=== PATIENT | male | born 1935 | race Caucasian/White ===

== ENCOUNTER 2016-07-13 11:50 | Inpatient (IN) | payer MEDICARE ==
[~2016-07-13] VITALS: Ht 185.4 cm; Wt 115.0 kg
[~2016-07-13 11:50] MED LIST: ASPI81TA82 PO; FURO1TAB93 PO; LEVO25TA36 PO; LISI-363 PO; SIMV80TA PO; WARF5TAB PO; [UNRECOGNIZED DRUG - CODE] XX
[2016-07-13 11:52] VITALS: BP 142/66; PULSE 58; RESP 20; TEMP 97.4; O2SAT 96
--- NOTE | 2016-07-13 12:05 | PD ---
Physical Exam Date Seen by Provider: Jul 13, 2016 Time Seen by Provider: 12:02 Narrative 81 year old male presents to the emergency department for possibility of arterial occlusion to his left foot. He was seen by his primary care physician this morning and was referred to the ED. He states he woke up at 11 pm last night with no feeling to his left lower leg. He states his foot is cool to the touch. Primary care physician is Dr. Tapia with [facility]. Vital signs reviewed. Patient awaiting bed placement. Data Data Last Documented VS Vital Signs Date Time Temp Pulse Resp B/P Pulse Ox O2 Delivery O2 Flow Rate FiO2 07/13/16 11:52 97.4 58 20 142/66 96 Room Air [facility] Supervised Visit with PRIYA: Asya Macias Jul 13, 2016 12:05
[2016-07-13] MEDS ORDERED: SODIUM CHLORIDE 0.9% FLUSH 10 ML FLUSH IV FLUSH PRN ×2 (14:15→19:30)
--- NOTE | 2016-07-13 14:23 | PD ---
HPI Chief Complaint: Pain: Acute or Chronic Time Seen by Provider: 14:20 Travel History International Travel<30 days: No Contact w/Intl Traveler<30days: No Traveled to known affect area: No History of Present Illness HPI Patient comes in for evaluation from his primary care doctor's office for possible arterial occlusion left lower extremity. Patient states that he woke last night at 11 PM with no sensation in his left leg from his knee down. Reports his tried poking it with a needle and he could not feel it. Patient's approximate 30 minutes he started having pins and needle sensation in his leg and today is having pain with walking in his posterior calf. Patient reports that he suppose to be on Coumadin for A. fib, but forgot to take 4 days worth. Patient states his primary care doctor's concern of possible arterial occlusion. Patient denies any pain currently other than with walking. PFSH Past Medical History Cardiovascular Problems: Yes (TRIPLE BYPASS 1998) Thyroid Disease: Yes Past Surgical History Thoracic Surgery: Yes Social History Alcohol Use: Yes Tobacco Use: Yes (CHEW TOBACCO) Allergies-Medications (Allergen,Severity, Reaction): Coded Allergies: No Known Allergies (Verified , 07/13/16) Reported Meds & Prescriptions Reported Meds & Active Scripts Active Reported Folic Acid 5 Mg Cap 5 Mg PO DAILY Aspirin 81 Mg Chew 81 Mg CHEW DAILY Metformin (Metformin HCl) 1,000 Mg Tab 1,000 Mg PO BIDPC With meals Levothyroxine (Levothyroxine Sodium) 25 Mcg Tab 25 Mcg PO DAILY Lopressor (Metoprolol Tartrate) 50 Mg Tab 25 Mg PO BID Simvastatin 40 Mg Tab 40 Mg PO HS Warfarin 4 Mg Tab 4 Mg PO DAILY Review of Systems Except as stated in HPI: all other systems reviewed are Neg Physical Exam Narrative GENERAL: Well-developed, overly nourished, in no acute distress, and non-ill appearing. SKIN: Focused skin assessment warm and dry. HEAD: Atraumatic. Normocephalic. EYES: Pupils equal and round. EOMI. No scleral icterus. No injection or drainage. ENT: No nasal bleeding or discharge. Mucous membranes pink and moist. NECK: Trachea midline. Supple. No nuclear rigidity. CARDIOVASCULAR: Dorsal pulses 1+, intact, and equal bilaterally. Decreased capillary refill bilaterally. RESPIRATORY: No accessory muscle use. No respiratory distress. MUSCULOSKELETAL: No obvious deformities. No clubbing. No cyanosis. No edema. Full range of motion. Negative Homans sign bilaterally. NEUROLOGICAL: Awake and alert. No obvious cranial nerve deficits. Motor grossly within normal limits. Normal speech. PSYCHIATRIC: Appropriate mood and affect; insight and judgment normal. Data Data Last Documented VS Vital Signs Date Time Temp Pulse Resp B/P Pulse Ox O2 Delivery O2 Flow Rate FiO2 07/13/16 18:37 56 16 167/77 96 Room Air 07/13/16 11:52 97.4 Orders Basic Metabolic Panel (Bmp) (07/13/16 14:12) Complete Blood Count With Diff (07/13/16 14:12) Prothrombin Time / Inr (Pt) (07/13/16 14:12) Act Partial Throm Time (Ptt) (07/13/16 14:12) Iv Access Insert/Monitor (07/13/16 14:12) Ecg Monitoring (07/13/16 14:12) Oximetry (07/13/16 14:12) Sodium Chloride 0.9% Flush (Ns Flush) (07/13/16 14:15) Cta Runoff W Iv Contrast W 3d (07/13/16 ) Us Leg Venous Doppler (07/13/16 ) Iohexol 350 Inj (Omnipaque 350 Inj) (07/13/16 16:51) Heparin Infusion JOÃO.Q1H (07/13/16 19:13) Heparin Inj (Heparin Inj) (07/13/16 19:15) Heparin Inj (Heparin Inj) (07/14/16 01:15) Heparin Inj (Heparin Inj) (07/14/16 01:15) Heparin-D5w Inj (Heparin-D5w Inj) (07/13/16 19:15) Act Partial Throm Time (Ptt) (07/13/16 19:13) Prothrombin Time / Inr (Pt) (07/13/16 19:13) Cbc No Diff, Includes Plts (07/13/16 19:13) Cbc No Diff, Includes Plts (07/16/16 06:00) Act Partial Throm Time (Ptt) (07/14/16 02:13) Occult Blood (Hemoccult) Stool (07/13/16 19:13) Consult Vascular Surgery (07/13/16 ) Admit To Inpatient (07/13/16 ) Code Status (07/13/16 19:25) Vital Signs (Adult) Q4H (07/13/16 19:25) Activity Bed Rest (07/13/16:25) Wood Technologist / Telemetry .CONTINUOUS (07/13/16:) Diet Npo (07/14/16 Breakfast) Sodium Chloride 0.9% Flush (Ns Flush) (07/13/16 19:30) Sodium Chloride 0.9% Flush (Ns Flush) (07/13/16 21:00) Acetaminophen (Tylenol) (07/13/16 19:30) Ondansetron Inj (Zofran Inj) (07/13/16 19:30) Magnesium Hydroxide Liq (Milk Of Magnesi (07/13/16 19:30) Temazepam (Restoril) (07/13/16:) Basic Metabolic Panel (Bmp) (07/14/16 06:00) Complete Blood Count With Diff (07/14/16 06:00) Electrocardiogram (07/13/16:25) Resp Oxygen Kvng C Titrat 1-4 L (07/13/16 ) Pt Request For Service (07/13/16:25) Naloxone Inj (Narcan Inj) (07/13/16 19:30) Inpatient Certification (07/13/16 ) Heparin Infusion JOÃO.Q1H (07/13/16 19:28) Heparin-D5w Inj (Heparin-D5w Inj) (07/13/16 19:30) Act Partial Throm Time (Ptt) (07/13/16 19:28) Act Partial Throm Time (Ptt) (07/14/16 02:28) Occult Blood (Hemoccult) Stool (07/13/16 19:28) Levothyroxine (Synthroid) (07/14/16 09:00) Metoprolol Tartrate (Lopressor) (07/13/16 21:00) (Nf) Simvastatin (07/13/16 21:00) Admit Order (Ed Use Only) (07/13/16 19:30) Labs Laboratory Tests Test 07/13/16 14:20 White Blood Count 6.1 TH/MM3 Red Blood Count 3.46 MIL/MM3 Hemoglobin 11.4 GM/DL Hematocrit 33.9 % Mean Corpuscular Volume 98.0 FL Mean Corpuscular Hemoglobin 32.9 PG Mean Corpuscular Hemoglobin 33.5 % Concent Red Cell Distribution Width 14.7 % Platelet Count 104 TH/MM3 Mean Platelet Volume 10.6 FL Neutrophils (%) (Auto) 56.5 % Lymphocytes (%) (Auto) 28.1 % Monocytes (%) (Auto) 13.1 % Eosinophils (%) (Auto) 1.5 % Basophils (%) (Auto) 0.8 % Neutrophils # (Auto) 3.5 TH/MM3 Lymphocytes # (Auto) 1.7 TH/MM3 Monocytes # (Auto) 0.8 TH/MM3 Eosinophils # (Auto) 0.1 TH/MM3 Basophils # (Auto) 0.0 TH/MM3 CBC Comment DIFF FINAL Differential Comment Prothrombin Time 11.6 SEC Prothromb Time International 1.0 RATIO Ratio Activated Partial 26.8 SEC Thromboplast Time Sodium Level 141 MEQ/L Potassium Level 4.3 MEQ/L Chloride Level 105 MEQ/L Carbon Dioxide Level 30.2 MEQ/L Anion Gap 6 MEQ/L Blood Urea Nitrogen 23 MG/DL Creatinine 0.96 MG/DL Estimat Glomerular Filtration 75 ML/MIN Rate Random Glucose 99 MG/DL Calcium Level 9.1 MG/DL [facility] Medical Decision Making Medical Screen Exam Complete: Yes Emergency Medical Condition: Yes Differential Diagnosis DVT, arterial occlusion, subtherapeutic INR, electrolyte abnormality, other Narrative Course Patient seen and examined. Laboratory blood studies were obtained and reviewed. Discussed patient with Dr. Perez, who is in agreement with plan of care and disposition. Discussed all findings and plan of care with patient and family. Patient is agreeable for admission. All questions were answered. Physician Communication Physician Communication [address] Nolan, who recommends patient admitted to medicine, started on heparin drip with IV bolus, and keep patient nothing by mouth. He will consult. [address] Prado, who is agreeable to admit the patient. Diagnosis Primary Impression: Left popliteal artery occlusion Additional Impression: Subtherapeutic international normalized ratio (INR) Admitting Information Admitting Physician Requests: Admit Condition: Stable Zenon Farrell Jul 13, 2016 14:23
[2016-07-13 14:29] VITALS: BP 143/96; PULSE 52; RESP 16; O2SAT 98
[2016-07-13 14:32] LABS: AUTOMATED NEUTROPHIL # 3.5 TH/MM3 (1.8-7.7); BASOPHIL % 0.8 % (0.0-2.0); EOSINOPHIL # 0.1 TH/MM3 (0-0.4); EOSINOPHIL % 1.5 % (0.0-4.0); HEMATOCRIT 33.9 % (39.0-51.0); HEMO FLAGS DIFF FINAL; LYMPH % 28.1 % (9.0-44.0); LYMPHOCYTE # 1.7 TH/MM3 (1.0-4.8); MEAN CORPUSCULAR HEMOGLOBIN 32.9 PG (27.0-34.0); MEAN CORPUSCULAR HGB CONC 33.5 % (32.0-36.0); MONO % 13.1 % (0.0-8.0); NEUT % 56.5 % (16.0-70.0); PLATELET COUNT 104 TH/MM3 (150-450); RED BLOOD COUNT 3.46 MIL/MM3 (4.50-5.90); RED CELL DISTRIBUTION WIDTH 14.7 % (11.6-17.2); WHITE BLOOD COUNT 6.1 TH/MM3 (4.0-11.0)
[2016-07-13] MEDS ORDERED: SIMV40TA PO (14:40)
[2016-07-13] MEDS ORDERED: LEVO25TA4 PO (14:40)
[2016-07-13] MEDS ORDERED: METO-309 PO (14:40)
[2016-07-13] MEDS ORDERED: FOLI5CAP PO (14:40)
[2016-07-13] MEDS ORDERED: ASPI81CH CHEW (14:40)
[2016-07-13] MEDS ORDERED: WARF-20 PO (14:40)
[2016-07-13] MEDS ORDERED: METF1000 PO (14:40)
[2016-07-13 14:45] LABS: APTT (PATIENT) 26.8 SEC (24.3-30.1); BICARBONATE 30.2 MEQ/L (21.0-32.0); POTASSIUM 4.3 MEQ/L (3.5-5.1); PROTHROMBIN TIME - PATIENT 11.6 SEC (9.8-11.6)
--- NOTE | 2016-07-13 14:53 | RADRPT ---
EXAM DATE/TIME: 07/13/2016 14:30 [facility] COMPARISON: No previous studies available for comparison. INDICATIONS : Left leg swelling. MEDICAL HISTORY : Hypertension. Hypothyroidism. Thyroid disease. Cardiac disorders. SURGICAL HISTORY : Triple bypass. ENCOUNTER: Initial ACUITY: 2 day PAIN SCORE: 3/10 LOCATION: Left leg. TECHNIQUE: Venous ultrasound of the leg was performed from the inguinal ligament to the proximal calf. Real-monty e, color Doppler and spectral tracing, compression and augmentation techniques were used. FINDINGS: There is normal compressibility of the deep venous system from the inguinal region to the proximal ca lf. No echogenic clot is seen in the lumen of the common femoral, femoral, popliteal, and posterior tibial veins. There is a normal response of the venous system to proximal and distal augmentation an d respiration. CONCLUSION: No DVT is identified within the left lower extremity. Vivek Morin MD on July 13, 2016 at 14:52 Board Certified Radiologist. This report was verified electronically.
[2016-07-13] MEDS ORDERED: IOHEXOL 350 MG/ML 10 ML VIAL (for RAD DIAG) IV ONE (16:51)
[2016-07-13 18:37] VITALS: BP 167/77; PULSE 56; RESP 16; O2SAT 96
--- NOTE | 2016-07-13 18:41 | RADRPT ---
EXAM DATE/TIME: 07/13/2016 16:24 [facility] COMPARISON: No previous studies available for comparison. INDICATIONS : Left leg weakness and lack of sensation from knee down. IV CONTRAST: 100 cc Omnipaque 350 (iohexol) IV RADIATION DOSE: 4.36 CTDIvol (mGy) MEDICAL HISTORY : Hypertension. Hernia, hiatal. Diabetes mellitus type 2. SURGICAL HISTORY : CABG ENCOUNTER: Initial ACUITY: 2 days PAIN SCALE: 0/10 LOCATION: Left leg TECHNIQUE: Volumetric scanning was performed using a multi-row detector CT scanner. The data was post processed with a variety of visualization algorithms including full volume maximum intensity projection, multi -planar sliding thin slab reformation, curved planar reformation, and surface rendering techniques. Using automated exposure control and adjustment of the mA and/or kV according to patient size, radiat ion dose was kept as low as reasonably achievable to obtain optimal diagnostic quality images. FINDINGS: The abdominal aorta is notable for moderate atheromatous irregularity and patchy intimal calcificatio n. No significant aortic stenosis. No aneurysm. The iliacs are widely patent bilaterally. The hypogas trics are patent bilaterally. Looking at the aortic visceral vessels, the celiac and SMA are patent a nd satisfactory in appearance. There is at least mild-moderate ostial renal artery stenosis bilateral ly. The STEVE is patent. In the left leg, the profunda is patent. The superficial femoral artery is widely patent throughout. The popliteal artery occludes just below the knee joint. The trifurcation vessels appear to reconstit [place] proximally. The posterior tibial is the dominant runoff vessel and is intact to the foot. Small c aliber anterior tibial and peritoneal vessels are also present, however these appear severely disease d and potentially discontinuous. In the contralateral right leg, the superficial femoral artery is patent with mild focal disease in t he adductor hiatus. The popliteal artery is intact. 3 vessel right calf runoff is noted. Elsewhere on the exam, note is made of interstitial thickening and mild pleural thickening in the joanne g bases. CONCLUSION: Left popliteal occlusion. Trifurcation vessels reconstitute proximally. Vivek Tena MD on July 13, 2016 at 18:28 Board Certified Radiologist. This report was verified electronically.
[2016-07-13] MEDS ORDERED: HEPARIN-D5W INJ 250 ML IV SCH ×2 (19:15→21:00)
[2016-07-13] MEDS ORDERED: HEPARIN SODIUM - IV 10,000 UNITS/10 ML VIAL IV ONE (19:15)
[2016-07-13] MEDS ORDERED: ACETAMINOPHEN 325 MG TAB PO PRN (19:30)
[2016-07-13] MEDS ORDERED: MAGNESIUM HYDROXIDE SUSP 30 ML CUP PO PRN (19:30)
[2016-07-13] MEDS ORDERED: TEMAZEPAM 15 MG CAP PO PRN (19:30)
[2016-07-13] MEDS ORDERED: ONDANSETRON HCL 4 MG/2 ML VIAL IVP PRN (19:30)
[2016-07-13] MEDS ORDERED: NALOXONE HCL 0.4 MG/ML AMP IV PRN (19:30)
[2016-07-13 19:53] LABS: HEMATOCRIT 32.3 % (39.0-51.0); MEAN CELL VOLUME 97.1 FL (80.0-100.0); MEAN CORPUSCULAR HEMOGLOBIN 33.2 PG (27.0-34.0); MEAN CORPUSCULAR HGB CONC 34.2 % (32.0-36.0); PLATELET COUNT 95 TH/MM3 (150-450); RED BLOOD COUNT 3.32 MIL/MM3 (4.50-5.90); RED CELL DISTRIBUTION WIDTH 14.8 % (11.6-17.2); WHITE BLOOD COUNT 4.9 TH/MM3 (4.0-11.0)
[2016-07-13 19:59] LABS: REVIEW FLAG ND
[2016-07-13 20:05] LABS: APTT (PATIENT) 27.1 SEC (24.3-30.1); INTERNATIONAL NORMALIZED RATIO 1.1 RATIO; PROTHROMBIN TIME - PATIENT 11.9 SEC (9.8-11.6)
[2016-07-13 20:28] VITALS: BP 172/85; PULSE 53; RESP 16; O2SAT 96
--- NOTE | 2016-07-13 20:34 | PD.CAR.PN ---
CVT Progress Note Subjective/Hospital Course: 81-year-old gentleman with the thromboembolism to the left popliteal artery and probably previous thromboembolic events as this looks like on the CTA. Patient has underlying arthrosclerotic changes and on that superimposed thromboembolic event I discussed this with the interventional radiologist Dr. Tena in the face off diminished but certainly present pulses in the left foot and completely preserved motoric and sensory activity I believe it's reasonable to place patient on IV heparin followed by possible tPA lysis or open embolectomy tomorrow. Advantage of TPA lysis is obviously no need for surgery and in addition patient can have a distal catch net to prevent embolization into posterior tibial artery With open embolectomy I have no protection and there is always a chance second knock off some of the clot into the distal circulation which of course carries its own problems. At this point will place patient on heparin see how they does tomorrow and consider our options how to best serve this gentleman Full consult dictated Thanks Rajesh Objective: Vital Signs Date Time Temp Pulse Resp B/P Pulse Ox O2 Delivery O2 Flow Rate FiO2 07/13/16 18:37 56 16 167/77 96 Room Air 07/13/16 14:29 52 16 143/96 98 07/13/16 11:52 97.4 58 20 142/66 96 Room Air Labs: Laboratory Tests Test 07/13/16 07/13/16 14:20 19:40 White Blood Count 6.1 TH/MM3 4.9 TH/MM3 (4.0-11.0) (4.0-11.0) Red Blood Count 3.46 MIL/MM3 3.32 MIL/MM3 (4.50-5.90) (4.50-5.90) Hemoglobin 11.4 GM/DL 11.0 GM/DL (13.0-17.0) (13.0-17.0) Hematocrit 33.9 % 32.3 % (39.0-51.0) (39.0-51.0) Mean Corpuscular Volume 98.0 FL 97.1 FL (80.0-100.0) (80.0-100.0) Mean Corpuscular Hemoglobin 32.9 PG 33.2 PG (27.0-34.0) (27.0-34.0) Mean Corpuscular Hemoglobin 33.5 % 34.2 % Concent (32.0-36.0) (32.0-36.0) Red Cell Distribution Width 14.7 % 14.8 % (11.6-17.2) (11.6-17.2) Platelet Count 104 TH/MM3 95 TH/MM3 (150-450) (150-450) Mean Platelet Volume 10.6 FL 10.4 FL (7.0-11.0) (7.0-11.0) Neutrophils (%) (Auto) 56.5 % (16.0-70.0) Lymphocytes (%) (Auto) 28.1 % (9.0-44.0) Monocytes (%) (Auto) 13.1 % (0.0-8.0) Eosinophils (%) (Auto) 1.5 % (0.0-4.0) Basophils (%) (Auto) 0.8 % (0.0-2.0) Neutrophils # (Auto) 3.5 TH/MM3 (1.8-7.7) Lymphocytes # (Auto) 1.7 TH/MM3 (1.0-4.8) Monocytes # (Auto) 0.8 TH/MM3 (0-0.9) Eosinophils # (Auto) 0.1 TH/MM3 (0-0.4) Basophils # (Auto) 0.0 TH/MM3 (0-0.2) CBC Comment DIFF FINAL Differential Comment Prothrombin Time 11.6 SEC 11.9 SEC (9.8-11.6) (9.8-11.6) Prothromb Time International 1.0 RATIO 1.1 RATIO Ratio Activated Partial 26.8 SEC 27.1 SEC Thromboplast Time (24.3-30.1) (24.3-30.1) Sodium Level 141 MEQ/L (136-145) Potassium Level 4.3 MEQ/L (3.5-5.1) Chloride Level 105 MEQ/L (98-107) Carbon Dioxide Level 30.2 MEQ/L (21.0-32.0) Anion Gap 6 MEQ/L (5-15) Blood Urea Nitrogen 23 MG/DL (7-18) Creatinine 0.96 MG/DL (0.60-1.30) Estimat Glomerular Filtration 75 ML/MIN (>89) Rate Random Glucose 99 MG/DL (74-106) Calcium Level 9.1 MG/DL (8.5-10.1) Result Diagram: 07/13/16 1940 07/13/16 1420 Jerrod Nolan MD Jul 13, 2016 20:34
[2016-07-13] MEDS: METOPROLOL TARTRATE 25 MG TAB PO SCH (21:00)
[2016-07-13] MEDS: SODIUM CHLORIDE 0.9% FLUSH 10 ML FLUSH IV FLUSH SCH (21:00)
[2016-07-13] MEDS: PRAVASTATIN SOD 80 MG TAB PO SCH (21:26)
[2016-07-13 21:30] VITALS: BP 129/80; PULSE 55; RESP 18; TEMP 97.1; O2SAT 97
--- NOTE | 2016-07-13 21:56 | MB ---
cc: JERROD DENTON MD DATE OF CONSULTATION: 07/13/[address] Denton, Vascular Surgery REASON FOR CONSULTATION Occlusion of the left leg blood flow, ischemia of the foot. HISTORY OF PRESENT ILLNESS This pleasant 81-year-old gentleman, appearing older than his actual age, presented to the emergency room around noon today. Apparently the patient awoke last night around midnight, did not have any sensation in the left leg from his knee down. Approximately 30-40 minutes later he started having a sensation then went to his doctor in [place] and now comes to the ER around noon today with a question of vascular occlusive disease and acute event. The patient then underwent workup, at 4:[address] scan which was then read as occlusion of the left popliteal artery. I will was called in consult. PAST MEDICAL HISTORY 1. Coronary artery disease. 2. Hypertension. 3. Diabetes mellitus. 4. Hypothyroidism. 5. Hyperlipidemia. 6. Atrial fibrillation. PAST SURGICAL HISTORY 1. Coronary artery bypass surgery in . 2. Aortic valve replacement a year ago. The patient is on Coumadin which is nontherapeutic. SOCIAL HISTORY He drinks socially and chews tobacco, never smoked. He is a retired police lieutenant patrol. MEDICATIONS Medications can be found on the record including Coumadin as above-noted not therapeutic. INR is normal. PHYSICAL EXAMINATION GENERAL: Reveals a pleasant 81-year-old gentleman in no acute distress. HEENT: Normocephalic. No trauma to the head. Pupils equally reactive. Extraocular muscles intact. NECK: Neck is supple. Bilateral carotid pulses. A right-sided carotid bruit 3-6. CHEST: Bilateral breath sounds. HEART: Irregular rhythm. He is in slow a-fib about 60-70 beats per minute. ABDOMEN: Soft. Active bowel sounds. No rebound, no guarding. EXTREMITIES: The patient has palpable femoral pulses which are strong bilateral. He has palpable right popliteal pulse and dorsalis pedis, posterior tibial pulse. On the left side he has a non-palpable popliteal pulse and no dopplerable pulse, but he has a weak dorsalis pedis and somewhat stronger posterior tibial by Doppler. Both feet are with decreased capillary refill, slightly cool left more than the right. Sensory is pretty completely motorically preserved. IMPRESSION AND RECOMMENDATIONS This gentleman has diabetes mellitus with sequelae of it including coronary artery disease and recent valve replacement. He is on Coumadin which is obviously not working and it is my impression the patient threw an embolus into the popliteal artery. It is also noted that the patient has significant underlying atherosclerotic disease on the left with occlusion of the anterior tibial artery somewhere fpc and peroneal artery I can barely see, so the only vessel running to the foot is posterior tibial artery. I believe that this gentleman probably has thrown clots in the past and these have gradually occluded his anterior tibial artery because the contralateral one looks pretty good, the popliteal is occluded. At this point, the patient will be placed on heparin. I spoke to interventional radiology, we are going to introduce a TPA lysis catheter and try to lyse this thing. If this fails, I can always go ahead and do open embolectomy but the risk of open embolectomy is coupled with the fact that we could flush pieces of clot distally and if his posterior tibial artery gets occluded then he will have a real problem. So I believe probably the appropriate way to go is to place the patient on heparin, try to do TPA lysis and if that does not work we can always do embolectomy. I have discussed this with the patient and his . They are agreeable. The patient is admitted to medicine and I will continue to follow along with you and intervene as appropriate. Thank you much for the referral. Critical care 40 minutes. Jerrod GARCÍA/SHANE /8:26 PM /9:18 PM
[2016-07-13 23:36] VITALS: PULSE 67
[2016-07-14] VITALS (9 sets, daily range): BP systolic 118–157; BP diastolic 58–75; PULSE 44–67; RESP 16–31; TEMP 96.2–98.7; O2SAT 95–99
[2016-07-14] MEDS ORDERED: HEPARIN SODIUM - IV 10,000 UNITS/10 ML VIAL IV PRN ×2 (01:15)
[2016-07-14 02:54] LABS: AUTOMATED NEUTROPHIL # 2.5 TH/MM3 (1.8-7.7); BASOPHIL % 0.8 % (0.0-2.0); EOSINOPHIL # 0.1 TH/MM3 (0-0.4); EOSINOPHIL % 1.9 % (0.0-4.0); HEMATOCRIT 30.5 % (39.0-51.0); LYMPH % 32.7 % (9.0-44.0); LYMPHOCYTE # 1.6 TH/MM3 (1.0-4.8); MEAN CELL VOLUME 97.5 FL (80.0-100.0); MEAN CORPUSCULAR HEMOGLOBIN 32.2 PG (27.0-34.0); MONO % 14.8 % (0.0-8.0); NEUT % 49.8 % (16.0-70.0); PLATELET COUNT 81 TH/MM3 (150-450); RED BLOOD COUNT 3.13 MIL/MM3 (4.50-5.90); RED CELL DISTRIBUTION WIDTH 14.4 % (11.6-17.2)
[2016-07-14 03:02] LABS: HEMO FLAGS AUTO DIFF
[2016-07-14 03:19] LABS: BICARBONATE 30.2 MEQ/L (21.0-32.0); POTASSIUM 3.6 MEQ/L (3.5-5.1)
[2016-07-14 03:26] LABS: APTT (PATIENT) 92.6 SEC (24.3-30.1)
[2016-07-14 03:34] LABS: OVALOCYTES 1+ (NORMAL); PLATELET ESTIMATE SMEAR LOW (NORMAL); PLATELET MORPHOLOGY ENLARGED (NORMAL); SCAN/DIFF AUTO DIFF CONFIRMED
[2016-07-14] MEDS ORDERED: MIDAZOLAM HCL 5 MG/5 ML VIAL ONE (08:42)
[2016-07-14] MEDS: fentaNYL CITRATE 250 MCG/5 ML AMP ONE (08:42)
[2016-07-14] MEDS: METOPROLOL TARTRATE 25 MG TAB PO SCH (09:00)
[2016-07-14] MEDS ORDERED: ALTEPLASE RECOMBINANT 2 MG VIAL ONE ×2 (10:30)
[2016-07-14] MEDS ORDERED: HEPARIN-D5W INJ 250 ML IV SCH (10:45)
[2016-07-14] MEDS ORDERED: CATHFLO ACTIVASE INJ 10 MG in SODIUM CHLORID 0.9% 500 ML INJ 500 ML IART SCH (10:45)
--- NOTE | 2016-07-14 10:46 | EC ---
Study Study Date:07/14/2016 STUDY CONCLUSIONS SUMMARY - Left ventricle: The cavity size was normal. Wall thickness was increased in a pattern of mild LVH. Systolic function was normal. The estimated ejection fraction was in the range of 55% to 60%. Wall motion was normal; there were no regional wall motion abnormalities. The study was not technically sufficient to allow evaluation of LV diastolic dysfunction due to atrial fibrillation. - Aortic valve: A bioprosthesis was present. Valve area: 1.31cm^2(VTI). Valve area: 1.22cm^2 (Vmax). - Mitral valve: Moderate regurgitation. Valve area by continuity equation (using LVOT flow): 2.05cm^2. - Left atrium: The atrium was moderately dilated. - Right atrium: The atrium was moderately dilated. - Tricuspid valve: Moderate regurgitation. - Pulmonary arteries: PA peak pressure: 34mm Hg (S). If LV function is below 40, please consider prescribing an ACEI or ARB or document rationale for non-use. PROCEDURE DATA STUDY STATUS: Elective. Procedure: Transthoracic echocardiography. Image quality was fair. Scanning was performed from the parasternal, apical, and subcostal acoustic windows. Study completion: The patient tolerated the procedure well. Transthoracic echocardiography. M-mode, complete 2D, complete spectral Doppler, and color Doppler. Height: Height: 73in. Weight: Weight: 241.5lb. Body mass index: BMI: 31.9kg/m^2. Body surface area: BSA: 2.33m^2. Patient status: Inpatient. CARDIAC ANATOMY LEFT VENTRICLE: The cavity size was normal. Wall thickness was increased in a pattern of mild LVH. Systolic function was normal. The estimated ejection fraction was in the range of 55% to 60%. Wall motion was normal; there were no regional wall motion abnormalities. The study was not technically sufficient to allow evaluation of LV diastolic dysfunction due to atrial fibrillation. AORTIC VALVE: Normal thickness leaflets. A bioprosthesis was present. Doppler: Transvalvular velocity was within the normal range. There was no stenosis. No regurgitation. Valve area: 1.31cm^2(VTI). Indexed valve area: 0.56cm^2/m^2 (VTI). Valve area: 1.22cm^2 (Vmax). Indexed valve area: 0.52cm^2/m^2 (Vmax). Mean gradient: 9mm Hg (S). Peak gradient: 15mm Hg (S). AORTA: Aortic root: The aortic root was normal in size. MITRAL VALVE: Structurally normal valve. Doppler: Transvalvular velocity was within the normal range. There was no evidence for stenosis. Moderate regurgitation. Valve area by continuity equation (using LVOT flow): 2.05cm^2. Indexed valve area by continuity equation (using LVOT flow): 0.88cm^2/m^2. Mean gradient: 4mm Hg (D). Peak gradient: 14mm Hg (D). LEFT ATRIUM: The atrium was moderately dilated. RIGHT VENTRICLE: The cavity size was normal. Wall thickness was normal. PULMONIC VALVE: Doppler: Transvalvular velocity was within the normal range. There was no evidence for stenosis. No regurgitation. TRICUSPID VALVE: Structurally normal valve. Doppler: Transvalvular velocity was within the normal range. Moderate regurgitation. PULMONARY ARTERY: The main pulmonary artery was normal-sized. Systolic pressure was within the normal range. RIGHT ATRIUM: The atrium was moderately dilated. PERICARDIUM: There was no pericardial effusion. SYSTEMIC VEINS: Inferior vena cava: The vessel was normal in size. Patient weight: 241.5lb _Ejection fraction:_ 65-75% _Fractional shortening:_ 32% up to 5Kg 5-11.5Kg 11.6-22.9Kg 23-45Kg 45-57Kg Aortic Root 7-13 <17 13-22 17-27 17-27 LA diam 6-13 <23 24-38 33-47 37-40 RVID 10-17 7-15 7-15 7-18 8-17 LVIDd 12-22 <32 24-38 33-47 37-40 LVPW 2-4 3-6 5-7 6-8 7-8 IVS 2-4 3-6 5-7 6-8 7-8 BASIC MEASUREMENTS ADULT NORMAL Left ventricle LV internal dimension, ED, chordal 49.5 mm 43-52 level, PLAX LV internal dimension, ES, chordal 37.8 mm 23-38 level, PLAX Fractional shortening, chordal level, *24 % >29 PLAX LV posterior wall thickness, ED 13.4 mm IVS/LVPW ratio, ED 1.01 <1.3 Ventricular septum Septal thickness, ED 13.5 mm Aorta Root diameter, ED 34 mm Left atrium Anterior-posterior dimension 47 mm Anterior-posterior dimension index 2.02 cm/m^2 <2.2 DOPPLER MEASUREMENTS ADULT NORMAL Main pulmonary artery Pressure, S *34 mm Hg =30 Aortic valve Peak velocity, S 192 cm/s Mean velocity, S 140 cm/s VTI, S 30.1 cm Mean gradient, S 9 mm Hg Peak gradient, S 15 mm Hg Valve area, VTI 1.31 cm^2 Valve area index, VTI 0.56 cm^2/m^2 Valve area, Vmax 1.22 cm^2 Valve area index, Vmax 0.52 cm^2/m^2 Mitral valve Peak E-wave velocity 154 cm/s Mean velocity, D 92.4 cm/s Deceleration time *252 ms 150-230 Mean gradient, D 4 mm Hg Peak gradient, D 14 mm Hg Valve area, LVOT continuity 2.05 cm^2 Valve area index, LVOT continuity 0.88 cm^2/m^2 Tricuspid valve Regurgitant peak velocity 243 cm/s Peak RV-RA gradient, S 24 mm Hg Maximal regurgitant velocity 243 cm/s Systemic veins Estimated CVP 10 mm Hg Right ventricle RV pressure, S *36 mm Hg <30 Pulmonic valve Peak velocity, S 75.2 cm/s LEGEND: Mean values are shown as u=mean value. Asterisk (*) rahman values outside specified normal range. Prepared and signed by Javon Pressley [id number]
--- NOTE | 2016-07-14 10:51 | PD.RAD ---
Post Procedure Progress Note Pre Procedure Diagnosis: (1) Left popliteal artery occlusion Post Procedure Diagnosis: (1) Left popliteal artery occlusion Procedure Date: Jul 14, 2016 Supervising Radiologist: Nadir Antunez Anesthesia: Local, Conscious Sedation Plan of Activity Patient to Unit: Critical Care Patient Condition: Good See PACS Report for procedural detail/treatment Vascular-Arterial Procedure Procedure 1 Procedure Site: Left Leg Procedure(s): Angiogram, Thrombolysis Access Access Site(s): Right Femoral Artery Sheath(s) Remaining: Right Femoral Artery Findings: Segmental occlusion of left Popliteal A and tibio-peroneal trunk. Proximal reconstitution of TOW BAR DRIVER Treament Area: Infusion catheter place across occlusion. IA tPA infusion started at 1mg/hr. Plan Follow-up angiogram on 07/15/16 Nadir Antunez MD Jul 14, 2016 10:51
--- NOTE | 2016-07-14 10:56 | HHI.HP ---
HPI Service [facility] Hospitalists Primary Care Physician Non-Staff Admission Diagnosis left popliteal occlusion, subtherapeutic INR Chief Complaint: LLE numbness Travel History International Travel<30 Days: No Contact w/Intl Traveler <30 Da: No Traveled to Known Affected Are: No History of Present Illness Patient is an 81-year-old male who presented to the ER yesterday afternoon with complaint of no feeling in his left lower leg which had started approximately 11 PM the evening prior. On the day of admission patient saw his primary care physician Dr. Tapia with [facility]. PCP was concerned about arterial occlusion and refer the patient to the ER. Patient has chronic atrial fibrillation and is prescribed Coumadin, but had not taken the Coumadin for 4 days prior to this admission. CTA with runoff was obtained (07/13/16) showing left popliteal occlusion. Left lower extremity ultrasound was obtained (07/13/16) showing no DVT. Case discussed with vascular surgeon, Dr. Nolan. Patient will be started on heparin with vascular surgery to consult. Review of Systems Constitutional: DENIES: Diaphoretic episodes, Fatigue, Fever, Weight gain, Weight loss, Chills, Dizziness, Change in appetite, Night Sweats Endocrine: DENIES: Heat/cold intolerance, Polydipsia, Polyuria, Polyphagia Eyes: DENIES: Blurred vision, Diplopia, Eye inflammation, Eye pain, Vision loss , Photosensitivity, Double Vision Ears, nose, mouth, throat: DENIES: Tinnitus, Hearing loss, Vertigo, Nasal discharge, Oral lesions, Throat pain, Hoarseness, Ear Pain, Running Nose, Epistaxis, Sinus Pain, Toothache, Odynophagia Respiratory: DENIES: Apneas, Cough, Snoring, Wheezing, Hemoptysis, Sputum production, Shortness of breath Cardiovascular: DENIES: Chest pain, Palpitations, Syncope, Dyspnea on Exertion , PND, Lower Extremity Edema, Orthopnea, Claudication Gastrointestinal: DENIES: Abdominal pain, Black stools, Bloody stools, BRB per rectum, Constipation, Diarrhea, GERD, Nausea, Reflux, Vomiting, Difficulty Swallowing, Anorexia Genitourinary: DENIES: Urinary frequency, Urinary incontinence, Urgency, Hematuria, Dysuria, Nocturia Musculoskeletal: DENIES: Joint pain, Muscle aches, Stiffness, Joint Swelling, Back pain, Neck pain Integumentary: DENIES: Abnormal pigmentation, Nail changes, Pruritus, Rash Hematologic/lymphatic: DENIES: Bruising, Lymphadenopathy Immunologic/allergic: DENIES: Eczema, Urticaria Neurologic: COMPLAINS OF: Paresthesias, DENIES: Abnormal gait, Headache, Localized weakness, Seizures, Speech Problems, Tremor, Poor Balance Psychiatric: DENIES: Anxiety, Confusion, Mood changes, Depression, Hallucinations, Agitation, Suicidal Ideation, Homicidal Ideation, Delusions, History of Bipolar, History of Schizophrenia Past Family Social History Past Medical History 1) hypertension 2) diabetes type 2 Last hemoglobin A1c 6.5 (08/16/15) 3) diabetic peripheral neuropathy 4) coronary artery disease - 3 vessel CABG 1997 - NTEMI 2014 - last [facility] (02/09/15) showing severe [place] coronary disease with patent graft and severe aortic valve stenosis - Last echocardiogram (04/09/15) 5) aortic valve disease, status post TAVR at [facility] 04/06/15 6) atrial fibrillation, chronic 7) hypothyroidism 8) pulmonary hypertension 9) COPD 10) macrocytic anemia 11) thrombocytopenia 12) history of asbestos exposure 13) esophagitis seen on EGD 14) gout 15) lumbar radiculopathy 16) hyperlipidemia Past Surgical History 1) aortic valve replacement by TAVR at [facility] April 2015 2) 3V CABG 1997 3) [facility], last 02/09/15 4) cataract surgery 5) elbow surgery, unspecified 6) inguinal hernia repair 7) vasectomy Reported Medications Reported Meds & Active Scripts Active Reported Folic Acid 5 Mg Cap 5 Mg PO DAILY Aspirin 81 Mg Chew 81 Mg CHEW DAILY Metformin (Metformin HCl) 1,000 Mg Tab 1,000 Mg PO BIDPC With meals Levothyroxine (Levothyroxine Sodium) 25 Mcg Tab 25 Mcg PO DAILY Lopressor (Metoprolol Tartrate) 50 Mg Tab 25 Mg PO BID Simvastatin 40 Mg Tab 40 Mg PO HS Warfarin 4 Mg Tab 4 Mg PO DAILY Allergies: Coded Allergies: No Known Allergies (Verified , 07/13/16) Family History Noncontributory Social History - - Retired - Alcohol: One to 2 drinks per week - Ever a smoker, but use chewing tobacco until 2014 - No illicit street drugs Physical Exam Vital Signs Vital Signs Date Time Temp Pulse Resp B/P Pulse Ox O2 Delivery O2 Flow Rate FiO2 07/14/16 08:00 96.2 53 16 130/75 97 07/14/16 04:35 97.8 55 20 118/69 98 4/15/17 00:32 44 07/14/16 00:28 97.3 57 18 157/73 95 07/13/16 23:36 67 07/13/16 21:30 97.1 55 18 129/80 97 07/13/16 20:28 53 16 172/85 96 07/13/16 18:37 56 16 167/77 96 Room Air 07/13/16 14:29 52 16 143/96 98 07/13/16 11:52 97.4 58 20 142/66 96 Room Air Physical Exam GENERAL: This is a well-nourished, well-developed patient, in no apparent distress. SKIN: No rashes, ecchymoses or lesions. Cool and dry. HEAD: Atraumatic. Normocephalic. No temporal or scalp tenderness. EYES: Pupils equal round and reactive. Extraocular motions intact. No scleral icterus. No injection or drainage. ENT: Nose without bleeding, purulent drainage or septal hematoma. Throat without erythema, tonsillar hypertrophy or exudate. Uvula midline. Airway patent. NECK: Trachea midline. No JVD or lymphadenopathy. Supple, nontender, no meningeal signs. CARDIOVASCULAR: Regular rate and rhythm without murmurs, gallops, or rubs. RESPIRATORY: Clear to auscultation. Breath sounds equal bilaterally. No wheezes , rales, or rhonchi. GASTROINTESTINAL: Abdomen soft, non-tender, nondistended. No hepato-splenomegaly , or palpable masses. No guarding. MUSCULOSKELETAL: LLE cool to touch, left popliteal pulse is NON-palpable NEUROLOGICAL: Awake and alert. Cranial nerves II through XII intact. Motor and sensory grossly within normal limits. Five out of 5 muscle strength in all muscle groups. Normal speech. Laboratory Laboratory Tests Test 07/13/16 07/13/16 07/14/16 07/14/16 14:20 19:40 02:25 05:30 White Blood Count 6.1 4.9 5.0 Red Blood Count 3.46 3.32 3.13 Hemoglobin 11.4 11.0 10.1 Hematocrit 33.9 32.3 30.5 Mean Corpuscular Volume 98.0 97.1 97.5 Mean Corpuscular Hemoglobin 32.9 33.2 32.2 Mean Corpuscular Hemoglobin 33.5 34.2 33.0 Concent Red Cell Distribution Width 14.7 14.8 14.4 Platelet Count 104 95 81 Mean Platelet Volume 10.6 10.4 10.4 Neutrophils (%) (Auto) 56.5 49.8 Lymphocytes (%) (Auto) 28.1 32.7 Monocytes (%) (Auto) 13.1 14.8 Eosinophils (%) (Auto) 1.5 1.9 Basophils (%) (Auto) 0.8 0.8 Neutrophils # (Auto) 3.5 2.5 Lymphocytes # (Auto) 1.7 1.6 Monocytes # (Auto) 0.8 0.7 Eosinophils # (Auto) 0.1 0.1 Basophils # (Auto) 0.0 0.0 CBC Comment DIFF FINAL AUTO DIFF Differential Comment AUTO DIFF CONFIRMED Prothrombin Time 11.6 11.9 Prothromb Time International 1.0 1.1 Ratio Activated Partial 26.8 27.1 92.6 59.0 Thromboplast Time Sodium Level 141 142 Potassium Level 4.3 3.6 Chloride Level 105 105 Carbon Dioxide Level 30.2 30.2 Anion Gap 6 7 Blood Urea Nitrogen 23 19 Creatinine 0.96 0.83 Estimat Glomerular Filtration 75 89 Rate Random Glucose 99 120 Calcium Level 9.1 8.8 Platelet Estimate LOW Platelet Morphology Comment ENLARGED Ovalocytes 1+ Result Diagram: 07/14/1622407/14/16224 Assessment and Plan Problem List: (1) Left popliteal artery occlusion Status: Acute Plan: - case d/w Dr. Nolan (07/13/16) - heparin - tPA infusion per IR - repeat angiogram 07/15/16 (2) CAD (coronary artery disease) Status: Acute Plan: - s/p 3V CABG 1997 - h/o STEMI - TAVR Apr 2015 - ASA, metoprolol (hold), statin (3) Atrial fibrillation Status: Acute Plan: - rate controlled - pt is prescribed coumadin, but had NOT taken coumadin for several days prior to admission - metoprolol (4) COPD (chronic obstructive pulmonary disease) Status: Acute Plan: - duonebs prn (5) HTN (hypertension) Status: Chronic Plan: - stable - metoprolol (hold) (6) DM2 (diabetes mellitus, type 2) Status: Chronic Plan: - last HgA1C 6.5 (08/13/15) 6.5 - metformin, on hold - SSI (7) Bradycardia Status: Acute Plan: - stop metoprolol for now d/t bradycardia - observe on telemetry Physician Certification 2 Midnight Certification Type: Admission for Inpatient Services Order for Inpatient Services The services are ordered in accordance with Medicare regulations or non- Medicare payer requirements, as applicable. In the case of services not specified as inpatient-only, they are appropriately provided as inpatient services in accordance with the 2-midnight benchmark. Estimated LOS (days): 3 3 days is the estimated time the patient will need to remain in the hospital, assuming treatment plan goals are met and no additional complications. Post-Hospital Plan: Not yet determined Problem Qualifiers (1) Atrial fibrillation: Qualified Code: I48.2 - Chronic atrial fibrillation (2) COPD (chronic obstructive pulmonary disease): (3) HTN (hypertension): Qualified Code: I10 - Essential hypertension (4) DM2 (diabetes mellitus, type 2): Arnol Prado DO Jul 14, 2016 10:56
[2016-07-14] MEDS ORDERED: IODIXANOL 320 MG/ML 50 ML VIAL (for RAD SPEC) I-ARTERIAL ONE (11:03)
[2016-07-14] MEDS ORDERED: GLUCAGON 1 MG/ML VIAL OTHER PRN (11:30)
[2016-07-14] MEDS ORDERED: DEXTROSE 50% IN WATER 50 ML VIAL(D50) IV PUSH PRN (11:30)
[2016-07-14] MEDS ORDERED: ATROPINE SULFATE 1 MG/10 ML SYRINGE ONE (12:00)
[2016-07-14 12:38] LABS: APTT (PATIENT) 51.7 SEC (24.3-30.1)
[2016-07-14] MEDS: LEVOTHYROXINE SODIUM 25 MCG TAB PO SCH (12:40)
--- NOTE | 2016-07-14 13:06 | RADRPT ---
EXAM DATE/TIME: 07/14/2016 09:20 [place] COMPARISON: No previous studies available for comparison. INDICATIONS : Patient with cold left leg. MEDICAL HISTORY : 1. A fib 2. CAD 3. HTN 4. DM 5. hypothyroidism 6. Hyperlipidemia SURGICAL HISTORY : 1. CABG 2. Aortic valve replacement >> ENCOUNTER: Initial ACUITY: 2 days PAIN SCORE: 10 LOCATION: Left calf FLUORO TIME: 7.4 minutes IMAGE SERIES: 9 ACCESS SITE: Right Femoral artery SEDATION TIME: 60 minutes CONTRAST: 1.) 50 cc Visipaque (iodixanol) MEDICATION(S): 1.) 4 mg midazolam (Versed) IV 2.) 150 mcg fentanyl (Sublimaze) IV 3.) 4 mg TPA IART DEVICE(S): 1.) Right popliteal artery 10 cm EV3 Infusion catheter PROCEDURE : 1. Ultrasound-guided puncture of the access site. 2. Conscious sedation with continuous EKG and oximetry monitoring. 3. Angiography of the left lower extremity 4. Angiography of the left posterior tibial artery 5. Infusion for thrombolysis The risks, benefits and alternatives to the procedure were explained and verbal and written consent w as obtained. The site was prepped in sterile fashion. Full sterile technique was used, including ca p, mask, sterile gloves and gown and a large sterile sheet. Hand hygiene and 2% chlorhexidine and/or betadine/alcohol prep was utilized per protocol for cutaneous antisepsis. The skin and subcutaneous tissues were infiltrated with local anesthetic solution. With ultrasound and fluoroscopic guidance the prescribed common femoral artery was punctured and a va scular sheath was placed. Left iliac system was selectively catheterized and digital angiogram of the left lower extremity perf ormed. The left common femoral, profunda femoris and superficial femoral arteries are widely patent. Segmental occlusion is identified in the distal popliteal artery extending into the tibial peroneal t runk. Collateral flow to provides reconstituted flow to both the anterior and posterior tibial arteries. Pe roneal artery appears occluded. Under fluoroscopic observation the occluded popliteal artery was traversed with a guidewire and marily ter. Digital angiography of the posterior tibial artery was then performed. Fluoroscopic observation a 10 cm long infusion catheter was advanced and placed across the occlusion. Possibly of 4 mg of Activase was performed through the infusion catheter. Continues Activase infusion of 1 mg per hour was instituted. Conscious sedation was performed with the prescribed dosages and duration as above in the presence of an independent trained radiology nurse to assist in the monitoring of the patient. EKG and oximetry remained stable throughout the procedure. CONCLUSION: Uncomplicated initiation of thrombolytic therapy as above Nadir Antunez MD on July 14, 2016 at 12:58 Board Certified Radiologist. This report was verified electronically.
[2016-07-14] MEDS ORDERED: cloNIDine HCL 0.2 MG TAB PO PRN (13:45)
--- NOTE | 2016-07-14 14:41 | EKG ---
Date Performed: 07/13/2016 Time Performed: 20:14:44 PTAGE: 81 years EKG: ATRIAL FIBRILLATION WITH SLOW VENTRICULAR RESPONSE MARKED LEFT AXIS DEVIATION LEFT BUNDLE B RANCH BLOCK Compared to previous tracing, the left bundle branch block and left axis deviation are ne w. ABNORMAL ECG PREVIOUS TRACING : 10/05/2004 08.47 DOCTOR: Octavio Arrington Interpretating Date/Time 07/14/2016 14:40:15
[2016-07-14] MEDS: INSULIN ASPART SUPPLEMENTAL SCALE SQ SCH ×2 (16:00→21:00)
[2016-07-14 18:03] LABS: APTT (PATIENT) 30.9 SEC (24.3-30.1)
[2016-07-14 18:14] LABS: AUTOMATED NEUTROPHIL # 2.8 TH/MM3 (1.8-7.7); EOSINOPHIL # 0.1 TH/MM3 (0-0.4); EOSINOPHIL % 1.7 % (0.0-4.0); HEMATOCRIT 30.4 % (39.0-51.0); LYMPH % 28.5 % (9.0-44.0); LYMPHOCYTE # 1.3 TH/MM3 (1.0-4.8); MEAN CELL VOLUME 96.8 FL (80.0-100.0); MEAN CORPUSCULAR HEMOGLOBIN 32.3 PG (27.0-34.0); MEAN CORPUSCULAR HGB CONC 33.4 % (32.0-36.0); MONO % 10.5 % (0.0-8.0); NEUT % 58.3 % (16.0-70.0); PLATELET COUNT 94 TH/MM3 (150-450); RED BLOOD COUNT 3.14 MIL/MM3 (4.50-5.90); WHITE BLOOD COUNT 4.7 TH/MM3 (4.0-11.0)
[2016-07-14 18:16] LABS: HEMO FLAGS DIFF FINAL
[2016-07-14] MEDS: ENALAPRILAT 1.25 MG/ML VIAL IV PRN (18:45)
--- NOTE | 2016-07-14 19:25 | PD.CAR.PN ---
CVT Progress Note Subjective/Hospital Course: 81-year-old gentleman with the thromboembolism to the left popliteal artery and probably previous thromboembolic events as this looks like on the CTA. Patient has underlying arthrosclerotic changes and on that superimposed thromboembolic event I discussed this with the interventional radiologist Dr. Tena in the face off diminished but certainly present pulses in the left foot and completely preserved motoric and sensory activity I believe it's reasonable to place patient on IV heparin followed by possible tPA lysis or open embolectomy tomorrow. Advantage of TPA lysis is obviously no need for surgery and in addition patient can have a distal catch net to prevent embolization into posterior tibial artery With open embolectomy I have no protection and there is always a chance second knock off some of the clot into the distal circulation which of course carries its own problems. At this point will place patient on heparin see how they does tomorrow and consider our options how to best serve this gentleman Full consult dictated Thanks J 07/14/2016 Patient with the terminal embolism to the left leg in distal popliteal artery Today underwent placement of a infusion catheter with TPA lysis by Dr. Antunez Patient doing very well at this time Both feet are nice and warm and patient has strong bilateral pulses, left foot much better than yesterday Hopefully this is all patient will need. If the clot still persists I can always do embolectomy after the TPA therapy is completed but I believe this will not be necessary In addition patient had cardiac echo which does not reveal any valvular deposits or clots especially in the face of bioprosthetic aortic valve Doing very well thanks to the great work by Dr. Antunez Objective: Vital Signs Date Time Temp Pulse Resp B/P Pulse Ox O2 Delivery O2 Flow Rate FiO2 07/14/16 16:00 97.8 51 16 143/87 98 Nasal Cannula 2 07/14/16 15:30 54 16 137/66 99 Nasal Cannula 2 07/14/16 15:00 43 16 135/60 97 Nasal Cannula 2 07/14/16 14:30 46 16 120/57 100 Nasal Cannula 2 07/14/16 14:00 53 16 141/73 100 Nasal Cannula 2 07/14/16 13:30 46 16 136/55 100 Nasal Cannula 2 07/14/16 13:15 49 16 147/67 100 Nasal Cannula 2 07/14/16 13:00 53 16 129/66 100 Nasal Cannula 2 07/14/16 12:45 46 16 144/70 100 Nasal Cannula 2 152/57 07/14/16 12:33 30 16 100 07/14/16 12:30 48 16 146/72 100 Nasal Cannula 2 152/56 07/14/16 12:15 46 16 152/71 100 Nasal Cannula 2 164/72 07/14/16 12:00 52 16 154/77 100 Nasal Cannula 2 07/14/16 11:45 46 16 138/68 100 Nasal Cannula 2 07/14/16 11:30 59 16 148/67 100 Nasal Cannula 2 07/14/16 11:25 97.9 58 16 147/57 100 Nasal Cannula 2 07/14/16 10:47 95 21 07/14/16 08:00 96.2 53 16 130/75 97 07/14/16 04:35 97.8 55 20 118/69 98 07/14/16 00:32 44 07/14/16 00:28 97.3 57 18 157/73 95 07/13/16 23:36 67 07/13/16 21:30 97.1 55 18 129/80 97 07/13/16 20:28 53 16 172/85 96 Labs: Laboratory Tests Test 07/14/16 07/14/16 07/14/16 11:45 17:10 18:05 Activated Partial 51.7 SEC 30.9 SEC Thromboplast Time (24.3-30.1) (24.3-30.1) Fibrinogen 275 mg/dL 257 mg/dL (181-393) (181-393) White Blood Count 4.7 TH/MM3 (4.0-11.0) Red Blood Count 3.14 MIL/MM3 (4.50-5.90) Hemoglobin 10.1 GM/DL (13.0-17.0) Hematocrit 30.4 % (39.0-51.0) Mean Corpuscular Volume 96.8 FL (80.0-100.0) Mean Corpuscular Hemoglobin 32.3 PG (27.0-34.0) Mean Corpuscular Hemoglobin 33.4 % Concent (32.0-36.0) Red Cell Distribution Width 15.0 % (11.6-17.2) Platelet Count 94 TH/MM3 (150-450) Mean Platelet Volume 10.3 FL (7.0-11.0) Neutrophils (%) (Auto) 58.3 % (16.0-70.0) Lymphocytes (%) (Auto) 28.5 % (9.0-44.0) Monocytes (%) (Auto) 10.5 % (0.0-8.0) Eosinophils (%) (Auto) 1.7 % (0.0-4.0) Basophils (%) (Auto) 1.0 % (0.0-2.0) Neutrophils # (Auto) 2.8 TH/MM3 (1.8-7.7) Lymphocytes # (Auto) 1.3 TH/MM3 (1.0-4.8) Monocytes # (Auto) 0.5 TH/MM3 (0-0.9) Eosinophils # (Auto) 0.1 TH/MM3 (0-0.4) Basophils # (Auto) 0.0 TH/MM3 (0-0.2) CBC Comment DIFF FINAL Differential Comment Result Diagram: 07/14/16 1805 07/14/16 0225 Jerrod Nolan MD Jul 14, 2016 19:25
[2016-07-14] MEDS: LISINOPRIL 20 MG TAB PO SCH (20:40)
[2016-07-14] MEDS: PRAVASTATIN SOD 80 MG TAB PO SCH (20:40)
[2016-07-14] MEDS: SODIUM CHLORIDE 0.9% FLUSH 10 ML FLUSH IV FLUSH SCH ×2 (20:40→20:42)
[2016-07-14 23:14] LABS: AUTOMATED NEUTROPHIL # 3.5 TH/MM3 (1.8-7.7); BASOPHIL % 0.7 % (0.0-2.0); EOSINOPHIL # 0.1 TH/MM3 (0-0.4); EOSINOPHIL % 1.6 % (0.0-4.0); HEMATOCRIT 29.3 % (39.0-51.0); LYMPH % 19.9 % (9.0-44.0); LYMPHOCYTE # 1.1 TH/MM3 (1.0-4.8); MEAN CELL VOLUME 96.5 FL (80.0-100.0); MEAN CORPUSCULAR HEMOGLOBIN 33.2 PG (27.0-34.0); MEAN CORPUSCULAR HGB CONC 34.4 % (32.0-36.0); MONO % 14.5 % (0.0-8.0); NEUT % 63.3 % (16.0-70.0); PLATELET COUNT 90 TH/MM3 (150-450); RED BLOOD COUNT 3.03 MIL/MM3 (4.50-5.90); RED CELL DISTRIBUTION WIDTH 14.7 % (11.6-17.2); WHITE BLOOD COUNT 5.5 TH/MM3 (4.0-11.0)
[2016-07-14 23:22] LABS: APTT (PATIENT) 35.7 SEC (24.3-30.1)
[2016-07-14 23:23] LABS: HEMO FLAGS AUTO DIFF
[2016-07-15] VITALS (17 sets, daily range): BP systolic 123–148; BP diastolic 53–95; PULSE 45–70; RESP 14–24; TEMP 96.6–98.4; O2SAT 95–97
[2016-07-15 00:58] LABS: OVALOCYTES 1+ (NORMAL); PLATELET ESTIMATE SMEAR LOW (NORMAL); PLATELET MORPHOLOGY NORMAL (NORMAL); SCAN/DIFF AUTO DIFF CONFIRMED
[2016-07-15 05:17] LABS: AUTOMATED NEUTROPHIL # 3.7 TH/MM3 (1.8-7.7); BASOPHIL % 0.6 % (0.0-2.0); EOSINOPHIL # 0.1 TH/MM3 (0-0.4); EOSINOPHIL % 1.8 % (0.0-4.0); HEMATOCRIT 29.4 % (39.0-51.0); LYMPH % 16.7 % (9.0-44.0); LYMPHOCYTE # 0.9 TH/MM3 (1.0-4.8); MEAN CELL VOLUME 96.1 FL (80.0-100.0); MEAN CORPUSCULAR HEMOGLOBIN 33.1 PG (27.0-34.0); MEAN CORPUSCULAR HGB CONC 34.5 % (32.0-36.0); MONO % 14.4 % (0.0-8.0); NEUT % 66.5 % (16.0-70.0); PLATELET COUNT 91 TH/MM3 (150-450); RED BLOOD COUNT 3.06 MIL/MM3 (4.50-5.90); RED CELL DISTRIBUTION WIDTH 14.9 % (11.6-17.2); WHITE BLOOD COUNT 5.6 TH/MM3 (4.0-11.0)
[2016-07-15] MEDS: ENALAPRILAT 1.25 MG/ML VIAL IV PRN (05:22)
[2016-07-15 05:28] LABS: HEMO FLAGS AUTO DIFF
[2016-07-15] MEDS ORDERED: HEPARIN-NS/PF INJ 500 ML IV SCH (05:30)
[2016-07-15] MEDS: LEVOTHYROXINE SODIUM 25 MCG TAB PO SCH (05:46)
[2016-07-15] MEDS: SODIUM CHLORID 0.9% IV SCH (05:46)
[2016-07-15] MEDS: HEPARIN IV SCH (05:46)
[2016-07-15 06:21] LABS: FIBRINOGEN 275 mg/dL (227-377)
[2016-07-15 06:22] LABS: APTT (PATIENT) GREATER THAN 153.4 SEC (24.3-30.1)
[2016-07-15] MEDS: INSULIN ASPART SUPPLEMENTAL SCALE SQ SCH ×4 (07:00→20:21)
[2016-07-15 07:40] LABS: APTT (PATIENT) 27.1 SEC (24.3-30.1)
[2016-07-15 08:40] LABS: OVALOCYTES 1+ (NORMAL)
[2016-07-15 08:41] LABS: ACANTHOCYTES OCC (NORMAL); PLATELET ESTIMATE SMEAR LOW (NORMAL); PLATELET MORPHOLOGY NORMAL (NORMAL); SCAN/DIFF AUTO DIFF CONFIRMED
[2016-07-15] MEDS: SODIUM CHLORIDE 0.9% FLUSH 10 ML FLUSH IV FLUSH SCH ×2 (08:46→20:21)
[2016-07-15] MEDS: LISINOPRIL 20 MG TAB PO SCH ×2 (08:47→20:20)
[2016-07-15] MEDS ORDERED: ROPIVACAINE 1% PF INJ 20 ML AMP ONE (13:27)
--- NOTE | 2016-07-15 13:35 | PD.CAR.PN ---
CVT Progress Note Subjective/Hospital Course: 81-year-old gentleman with the thromboembolism to the left popliteal artery and probably previous thromboembolic events as this looks like on the CTA. Patient has underlying arthrosclerotic changes and on that superimposed thromboembolic event I discussed this with the interventional radiologist Dr. Tena in the face off diminished but certainly present pulses in the left foot and completely preserved motoric and sensory activity I believe it's reasonable to place patient on IV heparin followed by possible tPA lysis or open embolectomy tomorrow. Advantage of TPA lysis is obviously no need for surgery and in addition patient can have a distal catch net to prevent embolization into posterior tibial artery With open embolectomy I have no protection and there is always a chance second knock off some of the clot into the distal circulation which of course carries its own problems. At this point will place patient on heparin see how they does tomorrow and consider our options how to best serve this gentleman Full consult dictated Thanks Rajesh 07/14/2016 Patient with the terminal embolism to the left leg in distal popliteal artery Today underwent placement of a infusion catheter with TPA lysis by Dr. Antunez Patient doing very well at this time Both feet are nice and warm and patient has strong bilateral pulses, left foot much better than yesterday Hopefully this is all patient will need. If the clot still persists I can always do embolectomy after the TPA therapy is completed but I believe this will not be necessary In addition patient had cardiac echo which does not reveal any valvular deposits or clots especially in the face of bioprosthetic aortic valve Doing very well thanks to the great work by Dr. Antunez 07/15/2016 Patient the on tPA infusion into the left leg overnight Foot is warm with strong dorsalis pedis and posterior tibial pulses Normal capillary refill I believe that the clot has resolved and patient will undergo imaging studies later on today We'll keep on heparin after the sheath removal and then switched to Coumadin or possibly a factor X a inhibitor instead Objective: Vital Signs Date Time Temp Pulse Resp B/P Pulse Ox O2 Delivery O2 Flow Rate FiO2 07/15/16 12:00 57 07/15/16 12:00 98.4 57 24 144/65 97 07/15/16 10:00 64 07/15/16 09:55 96 07/15/16 08:00 62 07/15/16 08:00 98.2 62 16 128/53 95 07/15/16 06:00 70 07/15/16 04:00 98.1 64 16 148/77 96 07/15/16 04:00 61 07/15/16 02:00 65 07/15/16 00:00 63 07/14/16 22:00 66 07/14/16 21:49 98 07/14/16 20:00 97.6 56 31 121/58 96 07/14/16 20:00 67 07/14/16 18:00 98.7 50 17 146/66 99 07/14/16 16:00 97.8 51 16 143/87 98 Nasal Cannula 2 07/14/16 15:30 54 16 137/66 99 Nasal Cannula 2 07/14/16 15:00 43 16 135/60 97 Nasal Cannula 2 07/14/16 14:30 46 16 120/57 100 Nasal Cannula 2 07/14/16 14:00 53 16 141/73 100 Nasal Cannula 2 Labs: Laboratory Tests Test 07/15/16 07/15/16 07/15/16 04:45 06:49 08:35 White Blood Count 5.6 TH/MM3 (4.0-11.0) Red Blood Count 3.06 MIL/MM3 (4.50-5.90) Hemoglobin 10.1 GM/DL (13.0-17.0) Hematocrit 29.4 % (39.0-51.0) Mean Corpuscular Volume 96.1 FL (80.0-100.0) Mean Corpuscular Hemoglobin 33.1 PG (27.0-34.0) Mean Corpuscular Hemoglobin 34.5 % Concent (32.0-36.0) Red Cell Distribution Width 14.9 % (11.6-17.2) Platelet Count 91 TH/MM3 (150-450) Mean Platelet Volume 10.1 FL (7.0-11.0) Neutrophils (%) (Auto) 66.5 % (16.0-70.0) Lymphocytes (%) (Auto) 16.7 % (9.0-44.0) Monocytes (%) (Auto) 14.4 % (0.0-8.0) Eosinophils (%) (Auto) 1.8 % (0.0-4.0) Basophils (%) (Auto) 0.6 % (0.0-2.0) Neutrophils # (Auto) 3.7 TH/MM3 (1.8-7.7) Lymphocytes # (Auto) 0.9 TH/MM3 (1.0-4.8) Monocytes # (Auto) 0.8 TH/MM3 (0-0.9) Eosinophils # (Auto) 0.1 TH/MM3 (0-0.4) Basophils # (Auto) 0.0 TH/MM3 (0-0.2) CBC Comment AUTO DIFF Differential Comment AUTO DIFF CONFIRMED Platelet Estimate LOW (NORMAL) Platelet Morphology Comment NORMAL (NORMAL) Ovalocytes 1+ (NORMAL) Acanthocytes OCC (NORMAL) Activated Partial GREATER THAN 27.1 SEC 29.0 SEC Thromboplast Time 153.4 SEC (24.3-30.1) (24.3-30.1) (24.3-30.1) Fibrinogen 275 mg/dL (227-377) Result Diagram: 07/15/16 0445 07/14/16 0225 Jerrod Nolan MD Jul 15, 2016 13:35
[2016-07-15] MEDS ORDERED: NITROGLYCERIN 50 MG/10 ML VIAL ONE (13:45)
[2016-07-15] MEDS ORDERED: IOHEXOL 350 MG/ML 100 ML BTL (for RAD DIAG) OTHER ONE (13:52)
--- NOTE | 2016-07-15 14:00 | PD.RAD ---
Post Procedure Progress Note Pre Procedure Diagnosis: (1) Left popliteal artery occlusion Post Procedure Diagnosis: (1) Left popliteal artery occlusion Procedure Date: Jul 15, 2016 Supervising Radiologist: Nadir Antunez Proceduralist/Assist: Helen Redd, RT(R)(CV), Kyra Yuan RT(R)() Anesthesia: Local, Analgesia Plan of Activity Patient to Unit: Critical Care Patient Condition: Good See PACS Report for procedural detail/treatment Vascular-Arterial Procedure Procedure 1 Procedure Site: Left Leg Procedure(s): Angiogram Access Access Site(s): Right Femoral Artery Closure Site(s): Right vascular closure device Findings: Lt popliteal and proximal infra-popliteal occlusive thrombus lysed with good flow to ankle. Intervention terminated. Nadir Antunez MD Jul 15, 2016 14:00
--- NOTE | 2016-07-15 15:29 | HHI.PR ---
Subjective Remarks paresthesia at LLE resolved. Objective Vitals Vital Signs Date Time Temp Pulse Resp B/P Pulse Ox O2 Delivery O2 Flow Rate FiO2 07/15/16 14:40 98.3 62 24 123/60 97 07/15/16 14:25 98.2 66 22 128/60 96 Arterial Line 07/15/16 12:00 57 07/15/16 12:00 98.4 57 24 144/65 97 07/15/16 10:00 64 07/15/16 09:55 96 07/15/16 08:00 62 07/15/16 08:00 98.2 62 16 128/53 95 07/15/16 06:00 70 07/15/16 04:00 98.1 64 16 148/77 96 07/15/16 04:00 61 07/15/16 02:00 65 07/15/16 00:00 63 07/14/16 22:00 66 07/14/16 21:49 98 07/14/16 20:00 97.6 56 31 121/58 96 07/14/16 20:00 67 07/14/16 18:00 98.7 50 17 146/66 99 07/14/16 16:00 97.8 51 16 143/87 98 Nasal Cannula 2 07/14/16 15:30 54 16 137/66 99 Nasal Cannula 2 07/14/16 07/14/16 07/15/16 15:00 23:00 07:00 Intake Total 480 ml 1671 ml 460 ml Output Total 560 ml 290 ml 400 ml Balance -80 ml 1381 ml 60 ml Intake Oral 480 ml 1080 ml IV Total 591 ml 430 ml Other 30 ml Output Urine Total 560 ml 290 ml 400 ml # Bowel Movements 0 0 Result Diagram: 07/15/16 0445 07/14/16 0225 Objective Remarks GENERAL: This is a well-nourished, well-developed patient, in no apparent distress. CARDIOVASCULAR: Regular rate and rhythm without murmurs, gallops, or rubs. RESPIRATORY: Clear to auscultation. Breath sounds equal bilaterally. No wheezes , rales, or rhonchi. GASTROINTESTINAL: Abdomen soft, non-tender, nondistended. Normal active bowel sounds MUSCULOSKELETAL: Extremities without clubbing, cyanosis, or edema. NEURO: Alert & Oriented x4 to person, place, time, situation. Moves all ext x4 Ext: LLE warm, palpable dorsalis pedis pulse A/P Problem List: (1) Left popliteal artery occlusion Status: Acute Plan: - case d/w Dr. Nolan (07/13/16) - case d/w Dr. Longo (07/15/16) - Lt popliteal and proximal infra-popliteal occlusive thrombus lysed with good flow to ankle. - heparin, stop - start xarelto this evening - Case informally d/w Cardiothoracic Surgeon, Dr. Alvarado. Pt over one year out from TAVR. Okay to use xarelto. - will discuss anticoagulation further with pt's finishing supervisor, Dr. Baptiste, prior to discharge. - PT to asses in AM - anticipate d/c 07/16/16 (2) CAD (coronary artery disease) Status: Acute Plan: - s/p 3V CABG 1997 - h/o STEMI - TAVR Apr 2015 - ASA, metoprolol (hold), statin (3) Atrial fibrillation Status: Acute Plan: - rate controlled - pt is prescribed coumadin, but had NOT taken coumadin for several days prior to admission - metoprolol (4) COPD (chronic obstructive pulmonary disease) Status: Acute Plan: - duonebs prn (5) HTN (hypertension) Status: Chronic Plan: - stable - metoprolol (hold) (6) DM2 (diabetes mellitus, type 2) Status: Chronic Plan: - last HgA1C 6.5 (08/13/15) 6.5 - metformin, on hold - SSI (7) Bradycardia Status: Acute Plan: - stop metoprolol for now d/t bradycardia - observe on telemetry Problem Qualifiers (1) Atrial fibrillation: Qualified Code: I48.2 - Chronic atrial fibrillation (2) COPD (chronic obstructive pulmonary disease): (3) HTN (hypertension): Qualified Code: I10 - Essential hypertension (4) DM2 (diabetes mellitus, type 2): Arnol Prado DO Jul 15, 2016 15:29
[2016-07-15] MEDS: PRAVASTATIN SOD 80 MG TAB PO SCH (20:20)
[2016-07-15] MEDS: predniSONE 20 MG TAB PO SCH (23:52)
[2016-07-16 00:52] VITALS: BP 144/60; PULSE 95; RESP 18; TEMP 98.4; O2SAT 96
[2016-07-16] MEDS: SODIUM CHLORID 0.9% IV SCH (05:23)
[2016-07-16] MEDS: HEPARIN IV SCH (05:23)
[2016-07-16 05:33] VITALS: BP 140/79; PULSE 101; RESP 17; TEMP 97.4; O2SAT 95
[2016-07-16] MEDS: LEVOTHYROXINE SODIUM 25 MCG TAB PO SCH (06:30)
[2016-07-16] MEDS: INSULIN ASPART SUPPLEMENTAL SCALE SQ SCH ×2 (06:40→11:00)
--- NOTE | 2016-07-16 08:25 | RADRPT ---
EXAM DATE/TIME: 07/15/2016 11:55 [facility] COMPARISON: ANGIOGRAM, LEFT LEG, July 14, 2016, 9:20. ANGIOGRAM, LEFT LEG, July 15, 2016, 13:50. INDICATIONS : Patient with cold left lower leg. 24 hr tpa MEDICAL HISTORY : 1. CAD 2. HTN 3. DM 4. A fib 5. Hypothyroidism 6. Hyperlipidemia SURGICAL HISTORY : 1. CABG 2. Aortic valve replacment ENCOUNTER: Subsequent ACUITY: 2 days PAIN SCORE: 3/10 LOCATION: lower back FLUORO TIME: 2.8 minutes IMAGE SERIES: 3 ACCESS SITE: Right Femoral artery SEDATION TIME: 60 minutes CONTRAST: 1.) 30 cc Omnipaque (iohexol) 350 MEDICATION(S): 1.) 100 mcg fentanyl (Sublimaze) IV DEVICE(S): 1.) Right common femoral artery 6 fr Angio-Seal PROCEDURE: F/U THRU EXISITING CATH, LEFT 1. Followup thrombolysis 2. Angiography of the left lower extremity 3. Right common femoral artery puncture closure with Angio-Seal. 4. Conscious sedation with continuous EKG and oximetry monitoring. Following TPA infusion the patient returned to the angiography suite for evaluation. A left popliteal and infrapopliteal arteriogram was performed through the existing sheath. There is complete lysis of the thrombus occluding the distal popliteal artery and tibial peroneal lena nk. Three-vessel runoff to the calf is now identified. Slow flow remains evident in the posterior tibial artery. Conscious sedation was performed with the prescribed dosages and duration as above in the presence of an independent trained radiology nurse to assist in the monitoring of the patient. EKG and oximetry remained stable throughout the procedure. CONCLUSION: Complete lysis of occluding thrombus within the left popliteal artery and proximal in frapopliteal runoff vessels. Three-vessel runoff to the calf has now been reestablished. Patient tolerated procedure well. Nadir Antunez MD on July 16, 2016 at 8:19 Board Certified Radiologist. This report was verified electronically.
[2016-07-16 08:28] VITALS: BP 117/64; PULSE 99; RESP 18; TEMP 97.2; O2SAT 96
[2016-07-16 08:31] LABS: HEMATOCRIT 31.3 % (39.0-51.0); MEAN CELL VOLUME 96.4 FL (80.0-100.0); MEAN CORPUSCULAR HEMOGLOBIN 32.3 PG (27.0-34.0); MEAN CORPUSCULAR HGB CONC 33.5 % (32.0-36.0); PLATELET COUNT 88 TH/MM3 (150-450); RED BLOOD COUNT 3.24 MIL/MM3 (4.50-5.90); RED CELL DISTRIBUTION WIDTH 14.4 % (11.6-17.2); WHITE BLOOD COUNT 7.1 TH/MM3 (4.0-11.0)
[2016-07-16] MEDS: SODIUM CHLORIDE 0.9% FLUSH 10 ML FLUSH IV FLUSH SCH (08:38)
[2016-07-16] MEDS: predniSONE 20 MG TAB PO SCH (08:38)
[2016-07-16] MEDS: LISINOPRIL 20 MG TAB PO SCH (08:38)
[2016-07-16 08:40] LABS: REVIEW FLAG FINAL
[2016-07-16 11:58] VITALS: BP 138/74; PULSE 67; RESP 20; TEMP 97.4; O2SAT 94
[2016-07-16] MEDS ORDERED: XARE20TA PO (12:20)
--- NOTE | 2016-07-16 12:36 | HHI.DCPOC ---
Discharge Care Plan Diagnosis: (1) Left popliteal artery occlusion (2) Atrial fibrillation (3) Bradycardia (4) DM2 (diabetes mellitus, type 2) (5) HTN (hypertension) (6) COPD (chronic obstructive pulmonary disease) (7) CAD (coronary artery disease) Goals to Promote Your Health * To prevent worsening of your condition and complications * To maintain your health at the optimal level Directions to Meet Your Goals Take your medications as prescribed Follow your dietary instruction Follow activity as directed Keep your appointments as scheduled Take your immunizations and boosters as scheduled If your symptoms worsen call your PCP, if no PCP go to Urgent Care Center or Emergency Room Smoking is Dangerous to Your Health. Avoid second hand smoke Call the 24-hour hour crisis hotline for domestic abuse at Raquel Garcia Jul 16, 2016 12:36
[2016-07-16] MEDS ORDERED: RIVAROXABAN 20 MG TAB PO ONE (13:00)
--- NOTE | 2016-07-16 13:22 | HHI.DS ---
Discharge Summary Admission Date Jul 13, 2016 at 19:33 Discharge Date: Jul 16, 2016 Admitting Diagnosis left popliteal occlusion, subtherapeutic INR (1) Left popliteal artery occlusion Diagnosis: Principal (2) CAD (coronary artery disease) Diagnosis: Secondary (3) Atrial fibrillation Diagnosis: Secondary (4) COPD (chronic obstructive pulmonary disease) Diagnosis: Secondary (5) HTN (hypertension) Diagnosis: Secondary (6) DM2 (diabetes mellitus, type 2) Diagnosis: Secondary (7) Bradycardia Diagnosis: Secondary Brief History Patient is an 81-year-old male who presented to the ER yesterday afternoon with complaint of no feeling in his left lower leg which had started approximately 11 PM the evening prior. On the day of admission patient saw his primary care physician Dr. Tapia with [facility]. PCP was concerned about arterial occlusion and refer the patient to the ER. Patient has chronic atrial fibrillation and is prescribed Coumadin, but had not taken the Coumadin for 4 days prior to this admission. CTA with runoff was obtained (07/13/16) showing left popliteal occlusion. Left lower extremity ultrasound was obtained (07/13/16) showing no DVT. Case discussed with vascular surgeon, Dr. Nolan. Patient will be started on heparin with vascular surgery to consult. CBC/BMP: 07/16/16 0744 07/14/16 0225 Significant Findings Laboratory Tests Test 07/13/16 07/13/16 07/14/16 07/14/16 14:20 19:40 02:25 05:30 Red Blood Count 3.46 MIL/MM3 3.32 MIL/MM3 3.13 MIL/MM3 (4.50-5.90) (4.50-5.90) (4.50-5.90) Hemoglobin 11.4 GM/DL 11.0 GM/DL 10.1 GM/DL (13.0-17.0) (13.0-17.0) (13.0-17.0) Hematocrit 33.9 % 32.3 % 30.5 % (39.0-51.0) (39.0-51.0) (39.0-51.0) Platelet Count 104 TH/MM3 95 TH/MM3 81 TH/MM3 (150-450) (150-450) (150-450) Monocytes (%) (Auto) 13.1 % 14.8 % (0.0-8.0) (0.0-8.0) Blood Urea Nitrogen 23 MG/DL (7-18) 19 MG/DL (7-18) Estimat Glomerular Filtration 75 ML/MIN (>89) Rate Prothrombin Time 11.9 SEC (9.8-11.6) Platelet Estimate LOW (NORMAL) Platelet Morphology Comment ENLARGED (NORMAL) Ovalocytes 1+ (NORMAL) Activated Partial 92.6 SEC 59.0 SEC Thromboplast Time (24.3-30.1) (24.3-30.1) Random Glucose 120 MG/DL (74-106) Test 07/14/16 07/14/16 07/14/16 07/14/16 11:45 17:10 18:05 23:00 Activated Partial 51.7 SEC 30.9 SEC 35.7 SEC Thromboplast Time (24.3-30.1) (24.3-30.1) (24.3-30.1) Red Blood Count 3.14 MIL/MM3 3.03 MIL/MM3 (4.50-5.90) (4.50-5.90) Hemoglobin 10.1 GM/DL 10.1 GM/DL (13.0-17.0) (13.0-17.0) Hematocrit 30.4 % 29.3 % (39.0-51.0) (39.0-51.0) Platelet Count 94 TH/MM3 90 TH/MM3 (150-450) (150-450) Monocytes (%) (Auto) 10.5 % 14.5 % (0.0-8.0) (0.0-8.0) Platelet Estimate LOW (NORMAL) Ovalocytes 1+ (NORMAL) Test 07/15/16 07/16/16 04:45 07:44 Red Blood Count 3.06 MIL/MM3 3.24 MIL/MM3 (4.50-5.90) (4.50-5.90) Hemoglobin 10.1 GM/DL 10.5 GM/DL (13.0-17.0) (13.0-17.0) Hematocrit 29.4 % 31.3 % (39.0-51.0) (39.0-51.0) Platelet Count 91 TH/MM3 88 TH/MM3 (150-450) (150-450) Monocytes (%) (Auto) 14.4 % (0.0-8.0) Lymphocytes # (Auto) 0.9 TH/MM3 (1.0-4.8) Platelet Estimate LOW (NORMAL) Ovalocytes 1+ (NORMAL) Activated Partial GREATER THAN Thromboplast Time 153.4 SEC (24.3-30.1) Hospital Course Pt is 81 yo with afib and hx tavr over 1 yr ago. He has been on coumadin for 18 yrs and says it has been stable. he ran out of the medication then forgot to put the new meds he received into the pill box. He developed a cold left leg below the knee. Found to have popliteal obstruction from embolus. TPA administered and obstruction relieved. He was on heparin. It was decided to switch him to xarelto on d/c. I called his grizzly worker who agreed with the switch and will f/u him up in office. Pt Condition on Discharge: Stable Discharge Disposition: Discharge Home Discharge Instructions DIET: Follow Instructions for: Heart Healthy Diet Activities you can perform: Regular-No Restrictions Follow up Referrals: Cardiology - [address] Baptiste PCP Follow-up - 1 Week New Medications: Rivaroxaban (Xarelto) 20 Mg Tab 20 MG PO DAILY a. fib Days 30 TAB Continued Medications: Folic Acid (Folic Acid) 5 Mg Cap 5 MG PO DAILY Nutritional Supplement Ref 0 CAP Levothyroxine (Levothyroxine) 25 Mcg Tab 25 MCG PO DAILY Thyroid #30 Ref 0 TAB Metformin (Metformin) 1,000 Mg Tab 1000 MG PO BIDPC With meals Blood Sugar Management #60 Ref 0 TAB Metoprolol Tartrate (Lopressor) 50 Mg Tab 25 MG PO BID #30 Ref 0 TAB Simvastatin (Simvastatin) 40 Mg Tab 40 MG PO HS Cholesterol Management #30 Ref 0 TAB Discontinued Medications: Aspirin (Aspirin) 81 Mg Chew 81 MG CHEW DAILY Ref 0 TAB Warfarin (Warfarin) 4 Mg Tab 4 MG PO DAILY Blood Clot Prevention #30 Ref 0 TAB Octavio Guillory MD Jul 16, 2016 13:22
== END 2016-07-16 13:58 | disposition home or self-care (01) | DRG 301 ==
LOC: NEPC 11:50 → NEDA 19:33 → HOCA 21:03 → N03B 07-14 11:59 → N05A 07-15 17:42
PROVIDERS: ADMIT Hospitalist; ATTEND Hospitalist
PROC: 3E05317 Introduction of Other Thrombolytic into Peripheral Artery, Percutaneous Approach (ICD-10-PCS; principal; 2016-07-14)
PROC: B41D1ZZ Fluoroscopy of Aorta and Bilateral Lower Extremity Arteries using Low Osmolar Contrast (ICD-10-PCS; 2016-07-14)
PROC: B41G1ZZ Fluoroscopy of Left Lower Extremity Arteries using Low Osmolar Contrast (ICD-10-PCS; 2016-07-15)
DX: I74.3 Embolism and thrombosis of arteries of the lower extremities (principal); E11.42 Type 2 diabetes mellitus with diabetic polyneuropathy; D69.6 Thrombocytopenia, unspecified; I27.2 Other secondary pulmonary hypertension; J44.9 Chronic obstructive pulmonary disease, unspecified; I25.10 Atherosclerotic heart disease of native coronary artery without angina pectoris; R00.1 Bradycardia, unspecified; I10 Essential (primary) hypertension; I48.2 Chronic atrial fibrillation; E03.9 Hypothyroidism, unspecified; E78.5 Hyperlipidemia, unspecified; M10.9 Gout, unspecified; Z77.090 Contact with and (suspected) exposure to asbestos; M54.16 Radiculopathy, lumbar region; I25.2 Old myocardial infarction; Z79.84 Long term (current) use of oral hypoglycemic drugs; Z79.82 Long term (current) use of aspirin; Z79.01 Long term (current) use of anticoagulants; Z95.1 Presence of aortocoronary bypass graft; Z95.2 Presence of prosthetic heart valve; Z87.891 Personal history of nicotine dependence
CPT/HCPCS: 36247; 37211; 37214; 75635; 75710; 75774; 76937; 80048; 82948; 85025; 85027; 85347; 85384; 85610; 85730; 93005; 93306; 93971; 99152; 99153; C1757; C1760; C1769; C1887; C1894; G0269; J0461; J1644; J1815; J2250; J2795; J2997; J3010; J7040; J7512; Q9967

== ENCOUNTER 2017-07-15 07:40 | Day surgery (SDC) | payer MEDICARE ==
[~2017-07-15] VITALS: Ht 188 cm; Wt 109.8 kg
[~2017-07-15 07:40] MED LIST changes: -ASPI81TA82 PO; +FOLI5CAP PO; -FURO1TAB93 PO; -LEVO25TA36 PO; +LEVO25TA4 PO; -LISI-363 PO; +METF1000 PO; +METO-309 PO; +SIMV40TA PO; -SIMV80TA PO; -WARF5TAB PO; +XARE20TA PO; -[UNRECOGNIZED DRUG - CODE] XX
[2017-07-15] MEDS ORDERED: IOHEXOL 350 MG/ML 100 ML BTL (for Cath Lab) OTHER ONE (07:41)
[2017-07-15 08:32] VITALS: BP 153/97; PULSE 70; RESP 18; TEMP 97.6; O2SAT 98
[2017-07-15] MEDS ORDERED: FURO40TA PO (08:45)
[2017-07-15] MEDS ORDERED: COLC1CAP3 PO (08:45)
[2017-07-15] MEDS ORDERED: ECASA81 PO (08:45)
[2017-07-15] MEDS ORDERED: OMEP20TA93 PO (08:45)
[2017-07-15] MEDS ORDERED: ISOS30TA3 PO (08:45)
[2017-07-15] MEDS ORDERED: MULTTAB67 PO (08:45)
[2017-07-15] MEDS ORDERED: PRED20 PO (08:45)
[2017-07-15] MEDS ORDERED: ALLO300T2 PO (08:45)
[2017-07-15] MEDS ORDERED: FOLI400T PO (08:45)
[2017-07-15] MEDS ORDERED: POTA99TA4 PO (08:45)
[2017-07-15] MEDS ORDERED: VITA500T35 PO (08:45)
[2017-07-15] MEDS ORDERED: NS 1000P @30 MLS/HR (KVO) IV SCH (09:00)
[2017-07-15] MEDS ORDERED: HEPARIN SODIUM - IV 10,000 UNITS/10 ML VIAL ONE (10:56)
[2017-07-15] MEDS ORDERED: HEPARIN-NS/PF FLUSH BAG 2,000 ML IV FLUSH ONE (10:56)
[2017-07-15] MEDS ORDERED: MIDAZOLAM HCL 2 MG/2 ML VIAL ONE (10:56)
[2017-07-15] MEDS ORDERED: NITROGLYCERIN INJ 5 ML ONE (10:56)
[2017-07-15] MEDS ORDERED: MISC INFORMATION XX ONE (11:45)
--- NOTE | 2017-07-15 12:02 | MA ---
cc: Brent Baptiste MD DATE: 07/15/2017 DATE OF PROCEDURE: 07/15/2017 INDICATION: Abnormal stress test, intermediate-risk. PROCEDURES PERFORMED: 1. Fluoroscopy with interpretation. 2. Coronary angiography. 3. Coronary artery bypass graft angiography. METHOD: The risks, benefits and alternatives were discussed with the patient. The patient understood and consented to the procedure. The patient was brought to the cardiac catheterization lab, placed on the catheterization table. The left wrist was prepped and draped. The left wrist was anesthetized with 2% lidocaine. The left radial artery was cannulated and a 6-Sami, 11 cm sheath was placed without difficulty. 200 mcg of intraarterial nitroglycerin in additional to 3000 units of intravenous heparin was administered. CORONARY ANGIOGRAPHY: 1. Left main has mild luminal irregularities. 2. Left anterior descending coronary has moderate diffuse disease in the proximal segment and occlusion just at the level of the diagonal branch. 3. Left circumflex is occluded proximally. Obtuse marginal branch occluded. 4. Right coronary has a 90% its mid-segment just beyond the takeoff of an acute marginal branch. CORONARY BYPASS GRAFT ANGIOGRAPHY: 1. Left internal mammary to the left anterior descending coronary artery is widely patent. Left anterior descending coronary artery is widely patent. 2. Saphenous vein graft to an obtuse marginal branch is widely patent. Obtuse marginal branch has minor luminal irregularities. 3. The saphenous vein graft to the right coronary artery is patent, has minor luminal irregularities. CONCLUSIONS: 1. Severe [place] three-vessel coronary artery disease. 2. Three of three coronary artery bypass grafts are widely patent. PLAN: The patient will be monitored closely for any post-procedure complication. The patient will be restarted on anticoagulation. Discharge later today. Can followup with Dr. Lucas. Symptoms sound somewhat atypical and coronary bypass grafts are patent. Symptoms more consistent with pleuritic type chest pain. Brent Baptiste MD KATH/SB , 11:44 AM , 12:01 PM
== END 2017-07-15 14:42 | disposition home or self-care (01) ==
LOC: HDOC 07:40 → HDIC 07:41 → HDOC 14:42
PROVIDERS: ATTEND Internal Medicine
DX: I25.10 Atherosclerotic heart disease of native coronary artery without angina pectoris (principal); R07.81 Pleurodynia; Z95.1 Presence of aortocoronary bypass graft
CPT/HCPCS: 86850; 86900; 86901; 93454; 99152; 99153; C1769; C1893; J1644; J2250; J3010; J7030; Q9967